=== PATIENT | male | born 1945 | race Two or more races ===

== ENCOUNTER 2018-10-09 11:28 | Emergency (ER) | payer MEDICARE ==
[~2018-10-09] VITALS: Ht 172.7 cm; Wt 95.3 kg
[2018-10-09 12:14] LABS: Urine Bacteria FEW /hpf (None Seen); Urine Blood TRACE /uL (Negative); Urine Mucus FEW (None Seen); Urine Specific Gravity 1.019 (1.001-1.035); Urine WBC 1 /hpf (0 - 3)
[2018-10-09] MEDS ORDERED: traMADol HCL 50 MG TAB PO ONE (12:45)
[2018-10-09 13:10] VITALS: BP 127/63
== END 2018-10-09 13:23 | disposition home or self-care (01) ==
LOC: ER 11:28
DX: M79.10 Myalgia, unspecified site (principal); R10.9 Unspecified abdominal pain; E11.9 Type 2 diabetes mellitus without complications; E78.5 Hyperlipidemia, unspecified; I10 Essential (primary) hypertension
CPT/HCPCS: 74176; 81001